=== PATIENT | male | born 1960 | race Caucasian/White ===

== ENCOUNTER 2023-01-21 09:39 | Outpatient (OUT) | payer OTHER, SELFPAY ==
[2023-01-21 11:01] LABS: Estimated Average Glucose 103 mg/dL; Glycohemoglobin A1C 5.2 % (4.5-6.2)
== END 2023-01-21 09:40 ==
LOC: LAB 09:46
PROVIDERS: PCP Family Medicine; Visit Provider Family Medicine
DX: Z00.00 Encounter for general adult medical examination without abnormal findings (principal)
CPT/HCPCS: 36415; 83036

== ENCOUNTER 2024-01-31 10:29 | Outpatient (OUT) | payer OTHER, SELFPAY ==
[2024-02-02 06:10] LABS: Levetiracetam (Keppra), S 8.6 ug/mL (10.0-40.0)
[2024-02-02 18:08] LABS: Lamotrigine (Lamictal), Serum 8.6 ug/mL (2.0-20.0)
== END 2024-01-31 10:30 | disposition home or self-care (01) ==
LOC: LAB 10:29
DX: G40.909 Epilepsy, unspecified, not intractable, without status epilepticus (principal)
CPT/HCPCS: 36415; 80175; 80177